=== PATIENT | male | born 1995 | race Two or more races ===

== ENCOUNTER 2018-06-10 12:37 | Emergency (ER) | payer OTHER ==
--- NOTE | 2018-06-10 13:45 | ER Document Report ---
HPI - HPI Patient complains to provider of: Dry spaghetti noodle embedded under right thumbnail Onset: Yesterday - P.m. Quality of pain: Throbbing Pain Level: 5 Context: 22-year-old right-handed male [employer] whose tetanus is current scrubbing apart and had a dried noodle embedded under his right thumbnail causing intense pain. He is trying to get it out with tweezers and then a needle and was unsuccessful. Associated Symptoms: None Exacerbated by: Denies Relieved by: Denies - ROS ROS below otherwise negative: Yes Systems Reviewed and Negative: Yes All other systems reviewed and negative Past Medical History - General Information source: Patient - Social History Smoking Status: Never Smoker Chew tobacco use (# tins/day): No Frequency of alcohol use: None Drug Abuse: None Occupation: [employer] Lives with: Alone Family History: Reviewed & Not Pertinent Patient has suicidal ideation: No Patient has homicidal ideation: No Renal/ Medical History: Denies: Hx Peritoneal Dialysis Vertical Provider Document - CONSTITUTIONAL Agree With Documented VS: Yes Exam Limitations: No Limitations General Appearance: No Apparent Distress - MUSCULOSKELETAL/EXTREMETIES Musculoskeletal/Extremeties: DAVIN LYONS Notes: Opaque coloration midline right thumb with some blood - NEURO Level of Consciousness: Awake Motor/Sensory: No Motor Deficit, No Sensory Deficit Course - Vital Signs Vital signs: Temp Pulse Resp BP Pulse Ox 97.9 F 74 18 129/82 H 100 06/10/18 13:01 06/10/18 13:01 06/10/18 13:01 06/10/18 13:01 06/10/18 13:01 Procedures - Incision and Drainage Right Thumb Time completed: 14:45 Anesthetic type: 1% Lidocaine - finger block mL's of anesthetic: 5 Blade size: 11 I&D procedure: Betadine prep applied Incision Method: Incision made by scalpel Notes: 06/10/18 14:46 Removed triangle piece of mid nail to remove the camron foreign body from the nailbed. Irrigation with sterile soapy water and bacitracin with a gauze, Coban dressing Discharge - Discharge Clinical Impression: Foreign body removal Condition: Good Disposition: HOME, SELF-CARE Instructions: Antibiotic Ointment Protection ([facility]), Removal of Subcutaneous Foreign Object ([facility]) Additional Instructions: Follow-up for wound check in 2 days at your sick call Soak in warm soapy water twice a day with bacitracin Nail will take 3 months to grow out completely Return to the emergency room any concerns Motrin for pain 800 mg up to 3 times a day for pain Tylenol for pain up to 4000 mg per day
[2018-06-10] MEDS ORDERED: LIDOCAINE 1% INJ-PF (10 MG/ML) 30 ML SDV INJ ONE (13:59)
[2018-06-10 15:02] VITALS: BP 132/78
== END 2018-06-10 14:50 | disposition home or self-care (01) ==
LOC: ER 12:37
DX: S60.351A Superficial foreign body of right thumb, initial encounter (principal); W45.8XXA Other foreign body or object entering through skin, initial encounter
CPT/HCPCS: 99283